=== PATIENT | male | born 1990 | race Caucasian/White ===

== ENCOUNTER 2019-01-23 10:25 | Inpatient (IN) | payer OTHER ==
[~2019-01-23] VITALS: Ht 182.9 cm; Wt 66.2 kg
[2019-01-23 10:41] VITALS: BP 100/61
[2019-01-23 10:59] LABS: URINE BILIRUBIN NEGATIVE (Negative); URINE BLOOD TRACE (Negative); URINE CLARITY CLEAR; URINE COLOR YELLOW; URINE GLUCOSE-RANDOM* NEGATIVE (Negative); URINE KETONES NEGATIVE (Negative); URINE LEUKOCYTES-REFLEX TRACE (Negative); URINE NITRITE-REFLEX NEGATIVE (Negative); URINE PROTEIN (DIPSTICK) NEGATIVE (Negative)
[2019-01-23 11:19] LABS: SSA (PROTEIN CONFIRMATORY) NEGATIVE (Negative)
[2019-01-23 11:43] LABS: ABSOLUTE NEUTROPHILS 7.2 thou/uL (1.4-8.2); BASOPHILS 0.4 % (0.0-2.0); EOSINOPHILS 6.7 % (0.0-3.0); HEMATOCRIT 44.7 % (42.0-52.0); HEMOGLOBIN 14.9 gm/dL (14.0-18.0); LYMPHOCYTES 17.9 % (24.0-44.0); MCHC 33.4 g/dL (28.0-37.0); MCV 89.7 fL (80.0-100.0); MONOCYTES 5.1 % (1.0-8.0); PLATELET COUNT 274 thou/uL (150-400); POLYS 69.9 % (36.0-66.0); RBC 4.98 mil/uL (4.50-6.00); RDW 12.8 % (10.5-14.5); WBC 10.3 thou/uL (4.0-11.0)
[2019-01-23 11:54] LABS: CALCIUM 10.1 mg/dL (8.5-10.1); POTASSIUM 4.2 mmol/L (3.5-5.1)
[2019-01-23 12:00] LABS: ALBUMIN 3.7 g/dL (3.4-5.0); TOTAL BILIRUBIN 0.8 mg/dL (<0.1-1.0); TOTAL PROTEIN 8.4 g/dL (6.4-8.2)
--- NOTE | 2019-01-23 15:10 | NUR ---
Pt brought up to room 433 by Emerg. dept charge nurse, Pt is awake and alert. Reporting pain right upper and lower abdominal quadrants. Pt has saline lock left AC. Pt is [place] speaking and is currently using language interpretation feature on his cell phone to facilitate communication. Pt also talking with his sister on his cell phone. See admission history and assessment.
[2019-01-23 17:27] VITALS: BP 150/76
--- NOTE | 2019-01-23 19:30 | NUR ---
Pt was medicated with Fentanyl IV for adominal pain (see emar) and received relief. Spoke with Dr Crook and received orders for a consent form for surgery tomorrow. Attempt made to use ob/gyn services provided by [facility] but unsuccessful in utilizing the service due to connection/phone issues. Continued to utilize pt's cell phone for language translation. Report given to oncoming RN.
[2019-01-24] VITALS (8 sets, daily range): BP systolic 110–131; BP diastolic 63–86
--- NOTE | 2019-01-24 03:16 | NUR ---
Assumed pt care at 1900. Pt is A/OX4,maltese primary language but using google morenita to translate without problems. C/o pain to RLQ,medicated with Fentanyl with relief reported.Up ad gissel. Pt has been NPO for possible appendectomy today. rounded on pt at .Encouraged to call for help as needed. Call light placed within reach.
--- NOTE | 2019-01-24 09:01 | NUR ---
RD consult received for pt with 8 lb unintentional wt loss from usual. Admitted with acute appendicitis and npo for surgical intervention today. Has had abdominal pain past week. Presents well nourished. Follow for timely ability to advance diet after surgery, otherwise low nutrition risk
--- NOTE | 2019-01-24 15:34 | NUR ---
PT ADMITTED RELATED TO APPY. CM REVIEWED CHART AND SPOKE WITH CARE TEAM. CM MET WITH PT AT BEDSIDE THIS DAY. HE IS ALERT AND ORIENTED BUT ONLY CHINESE SPEAKING. PT USED A TRASLATOR SERVICE ON HIS CELL PHONE. HE INDICATED THAT HE LIVES IN A HOUSE WITH IS AUNT AND DTR. PT INDICATED HE IS UNINSURED. PT INDICATED HE PLANS TO RETURN HOME ONCE MEDICALLY STABLE. CM TO FOLLOW INDICATED WITH DC PLANNING.
--- NOTE | 2019-01-24 16:48 | NUR ---
FAXED FACE SHEET TO [employer] TO HELP WITH MEDICAID APPLICATION RECEIVED CONFIRMATION.
--- NOTE | 2019-01-24 19:40 | NUR ---
ASSUMED CARE OF PATIENT AT 0715, PATIENT ALERT AND ORIENTED X 4. UP AD BRYAN IN ROOM TO BATHROOM. PATIENT C/O PAIN WITH ABDOMEN AREA DUE TO APPENDICITIS. DR FRENCH HERE THIS AM, NEW ORDERS RECEIVED FOR DILAUDID IV FOR PAIN. PATIENT RECEIVED DILAUDID IV AND FENTANYL IV ALTERNATING, PATIENT C/O HEADACHE RECEIVED TYLENOL 650MG PO X 1 PRIOR TO SURGERY. PATIENT HAS LEFT AV IV IN PLACE WITH NS AT 125CC/HR, RECEIVED FLAGYL IVPB X 1 THIS SHIFT. PATIENT LEFT FLOOR FOR SURGERY AT 1510. REPORT GIVEN TO SEAN/RN.
[2019-01-25 03:50] VITALS: BP 114/72
--- NOTE | 2019-01-25 05:27 | NUR ---
Assumed pt care at 1900 upon return from surgery. Pt in severe pain then medicated with Dilaudid with relief reported. Has 3 lap sites on abd intact with dermabond,ROSI drain on RUQ draining saunguineous noted. C/o nausea medicated with relief noted. Offered clear liquids only wanted popsicles and no further nausea. Had a low grade temp medicated with Tylenol twice with relief noted. Up and voiding without problems. Appreciative of cares. Encouraged to call as needed and doing so. Will continue to monitor pt.
[2019-01-25 08:06] VITALS: BP 118/63
[2019-01-25 09:02] LABS: HEMOGLOBIN 13.5 gm/dL (14.0-18.0); MCHC 33.8 g/dL (28.0-37.0); MCV 88.8 fL (80.0-100.0); RBC 4.5 mil/uL (4.50-6.00); RDW 12.7 % (10.5-14.5); WBC 9.2 thou/uL (4.0-11.0)
[2019-01-25 09:10] LABS: CALCIUM 9.3 mg/dL (8.5-10.1); CREATININE 0.9 mg/dL (0.7-1.3)
[2019-01-25 09:14] LABS: ALBUMIN 3.1 g/dL (3.4-5.0); PHOSPHORUS 3.5 mg/dL (2.5-4.9)
--- NOTE | 2019-01-25 16:39 | NUR ---
CARE TEAM INDICATED THAT PT IS STILL HAVING INCREASED PAIN AND THEY ARE WORKING ON ADVANCING DIET. ON CONTROLLED AND DIET TOLERATED IT IS ANTICPATED THAT PT WILL DC HOME WITH NO NEEDS. CM TO FOLLOW SHOULD ANY DC NEEDS ARISE.
[2019-01-25 17:47] VITALS: BP 122/75
[2019-01-25 19:04] VITALS: BP 119/66
--- NOTE | 2019-01-25 19:43 | NUR ---
ASSUMED CARE OF PATIENT AT 0715, PATIENT ALERT AND ORIENTED X 4. PATIENT IS TAMAZIGHT SPEAKING ONLY, TRANSLATION USED TO COMMUNICATE. THIS RN INSTRUCTED PATIENT TO CALL FOR ASSISTANCE, FALL PRECATIONS IN PLACE. PATIENT HAS LEFT AC IV WITH NS AT 125CC/HR, PATIENT RECEIVED FLAGYL IVPB X 1 THIS SHIFT. PATIENT HAS URINATED W/O DIFFICULTY, NO BM, BUT ACTIVE BS. DR FRENCH HERE TODAY TO SEE THE PATIENT NEW PAIN MED IV ORDERED/TORADOL IV GIVEN X 1, BUT PATIENT C/O ITCHING AFTER MED GIVEN. THIS RN NOTIFIED DR FRENCH, ORDER RECEIVED FOR BENADRYL 50MG PO EVERY 6HRS/PRN, AND HE DOESNT THINK TORADOL CAUSED THE ITCHING, BUT OK TO DISCONTINUE. PATIENT HAS BEEN GIVEN OXYCODONE X 1, FENTANYL, AND DILAUDID FOR PAIN THIS SHIFT, ALSO THE TORADOL IV. PATIENT ON CLEAR LIQUID DIET, TOLERATING W/D DIFFICULTY, NO NAUSEA REPORTED. ROSI DRAIN EMPTIED 15CC. WILL CONTINUE TO MONITOR.
[2019-01-25 19:56] VITALS: BP 123/78
[2019-01-26 04:07] VITALS: BP 133/84
--- NOTE | 2019-01-26 04:25 | NUR ---
Assumed pt care at 1900. A/OX4,up with SBA to bathroom d/t pain meds. C/o severe pain especially with movement,discussed with patient the importance of taking PO pain meds consecutively with Fentanyl for better pain relief and pt agreeable to. Encouraged to eat items on the clear diet list;had jello and popsicles with no nausea reported. IVF infusing via LAC without problems. Medicated for pain with partial relief reported,having a low grade temp Tylenol given as needed. Will continue to monitor pt.
[2019-01-26 07:00] VITALS: BP 122/80
--- NOTE | 2019-01-26 13:26 | NUR ---
CARE TEAM INDICATED THAT PT HAD RUPTURED APPY AND THAT THEY ANTIPATE THAT PT'S STAY WILL BE SOMEWHAT PROLONGED.
[2019-01-26 15:40] VITALS: BP 128/83
--- NOTE | 2019-01-26 16:47 | NUR ---
PT ASSESSED AT START OF SHIFT. PT C/O A LOT OF ABD PAIN WHICH IS RELIEVED SOME W/ IV PAIN MEDS. BOWEL SOUNDS VERY HYPOACTIVE. NO FLATUS PASSED. BELCHING SOME AND NAUSEATED TWICE W/ ZOFRAN GIVEN. PT AMBULATED THE HALLS THIS AM W/ NURSE. MOVES SLOWLY W/ AND VERY PAINFUL WHEN CHANGING POSITIONS. DR. FRENCH IN THIS AM TO SEE PT. NOAH ORDERED AND DR. ACOSTA TO RECIEVE RESULTS AT THIS TIME.
[2019-01-26 19:35] VITALS: BP 139/84
--- NOTE | 2019-01-27 00:45 | NUR ---
ASSESSMENT COMPLETED. PT HAS BEEN HAVING HICCUPS HENCE ALOT OF PAIN AND DISTRESS. NG TUBE TO RIGHT NARE FOR DECOMPRESSION. PT GETTING IV PAIN MEDS WITH FAIR RELIEF. WITH INTERMITTENT NAUSEA.TOLERATING SIPS OF WATER.WILL CONTINUE WITH POC.
[2019-01-27 05:05] VITALS: BP 102/64
[2019-01-27 05:25] VITALS: BP 149/94
[2019-01-27 07:10] VITALS: BP 131/75
[2019-01-27 08:37] LABS: HEMATOCRIT 43.5 % (42.0-52.0); HEMOGLOBIN 14.3 gm/dL (14.0-18.0); MCH 29.7 pg (26.0-34.0); MCHC 32.8 g/dL (28.0-37.0); MCV 90.5 fL (80.0-100.0); RBC 4.81 mil/uL (4.50-6.00); RDW 13.2 % (10.5-14.5); WBC 10.3 thou/uL (4.0-11.0)
[2019-01-27 08:49] LABS: ALBUMIN 2.7 g/dL (3.4-5.0); CREATININE 0.9 mg/dL (0.7-1.3); PHOSPHORUS 3.7 mg/dL (2.5-4.9); POTASSIUM 3.8 mmol/L (3.5-5.1)
--- NOTE | 2019-01-27 11:07 | PATH ---
[facility] [place] [address] PATHOLOGY RPT PROCEDURE Name: PHIL MCKEON Room #: 433-I ADM IN M.R.#: [id number] Admission: 01/23/19 Date of : 89 Discharge: Report #: [id number] Path Case #: [id number] LCA Accession Number: [id number] . 01 Material submitted: . appendix - APPENDIX . 01 Clinical history: . Acute appendicitis . 02 Diagnosis: Appendix, appendectomy: - Marked acute appendicitis along with marked acute serositis. . (IUV:mml; 01/26/2019) [facility] 01/26/2019 1636 Local . 02 Electronically signed: . Elenita Quarles MD, Pathologist NPI- [id number] . 01 Gross description: . The specimen is received in formalin, labeled "Phil Mckeon, appendix" and consists of a markedly disrupted appendix measuring approximately 7.3 cm in length and up to 1.0 cm in diameter with mesoappendix measuring 1.3 thick. The identifiable serosa is cota-brown and hemorrhagic with fibrous exudate. The margin is closed with a line of heidi and inked black. Sectioning reveals a pink-cota hemorrhagic lumen with adjacent mesoappendix hemorrhage. Business Liaison Officer sections are submitted in A1-A3. (SDY; 01/25/2019) SYU/SYU 01/25/2019 [facility] Local . 02 Pathologist provided ICD-10: K35.80 . 02 CPT . 725466 Specimen Comment: A courtesy copy of this report has been sent to [phone] Specimen Comment: Report sent to Performed at: [address] [id number] MD Jl Pavon MD Phone: [phone] Performed at: [address] [id number] [address] [address] PATHOLOGY RPT PROCEDURE Name: PHIL MCKEON Room #: 433-I ADM IN .R.#: [id number] Admission: 01/23/19 Date of : 89 Discharge: Report #: [id number] Path Case #: [id number] MD Elenita Quarles MD Phone: [phone]
--- NOTE | 2019-01-27 14:43 | NUR ---
IT IS ANTICIPATED THAT PT WILL BE HERE OVER THE WEEKEND HE IS PROGRESSING SLOWLEY. CM TO FOLLOW SHOULD ANY DC NEEDS ARISE.
--- NOTE | 2019-01-27 15:48 | NUR ---
Assumed care of pt at 0700. Pt c/o abd pain. Prn pain med administered. Pt c/o hickups. J.P. drain output from [id number] 800mL. Provider aware. Abd CT scan ordered. IVF infusing. Call light within reach. Will continue to monitor.
[2019-01-27 20:00] VITALS: BP 129/81
[2019-01-28 03:25] VITALS: BP 122/74
[2019-01-28 05:25] LABS: ALBUMIN 2.2 g/dL (3.4-5.0); CALCIUM 8.5 mg/dL (8.5-10.1); CREATININE 0.7 mg/dL (0.7-1.3); PHOSPHORUS 3.4 mg/dL (2.5-4.9)
[2019-01-28 05:27] LABS: POTASSIUM 3.7 mmol/L (3.5-5.1)
--- NOTE | 2019-01-28 08:01 | NUR ---
PATIENT ALERT AND ORIENTED X4. C/O PAIN MED, MED GIVEN X2. PATIENT SPEAKS LITTLE SAMI BUT HAS A CODING MANAGER ON HIS PHONE THAT TAKES WHAT OU SAY AND TRANSLATES FOR HIM. SLEPT OFF AND ON DURING NIGHT. ROSI DRAIN THAT HAS SERIUS FLUIDS.
[2019-01-28 08:29] VITALS: BP 115/69
[2019-01-28 09:47] LABS: HEMATOCRIT 36.8 % (42.0-52.0); MCH 30.1 pg (26.0-34.0); MCHC 33.4 g/dL (28.0-37.0); MCV 90.2 fL (80.0-100.0); RBC 4.08 mil/uL (4.50-6.00); WBC 8.6 thou/uL (4.0-11.0)
[2019-01-28 09:53] LABS: HEMOGLOBIN 12.3 gm/dL (14.0-18.0)
--- NOTE | 2019-01-28 17:13 | NUR ---
Assumed care at 0700. Pt is AOx4, speaks namibian only. Pt had BM and diet was advanced to clear liquid. Pt has hiccups on and off throughout the shift. Pt remains compliant with scheduled meds. No pain at this time. Pt was up in [place] walking with nurse. Call light in reach and pt will use appropriately. Will continue to monitor.
[2019-01-28 17:15] VITALS: BP 124/62
[2019-01-28 20:00] VITALS: BP 111/74
--- NOTE | 2019-01-28 23:23 | NUR ---
ASSESSMENT COMPLETED. PT APPEARS AND STATES FEELING BETTER. REPORTS THREE BMS SO FAR. REQUESTED FOR REGLAN. PT STARTED HAVING HICCUPS RIGHT ABOUT WHEN THE PRN DOSE OF THORAZINE WAS DUE-ONCE GIVEN, PT IS FALLEN ASLEEP HENCE APPEARS TO BE IN NO DISTRESS. VSS.HE DENIES PAIN. ROSI DRAIN TO RLQ WITH MODERATE AMTS OF SEROUS DRAINAGE. HE REMAINS UP AD BRYAN. HE DID NOT WANT TO WALK TONIGHT/ YET DUE TO THE HICCUPS. WILL CONTINUE WITH POC TILL EOS.
[2019-01-29 07:20] VITALS: BP 113/61
--- NOTE | 2019-01-29 07:36 | NUR ---
PT RESTING IN BED NO PAIN NO HICCUPS WILL CALL TO GET MED FOR HICCUPS CHANDED FROM SCEDULED TO PRN PATIENT REQUEST. DIET CHANGED TO FULL LIQUIDS.
--- NOTE | 2019-01-29 10:33 | NUR ---
ORDER IN COMPUTER FOR STAPLE REMOVAL ( NO ANDRES) PT HAS HAS 3 DURVT FUNG SITES .
[2019-01-29 16:08] VITALS: BP 115/73
--- NOTE | 2019-01-29 16:38 | NUR ---
Resumed care at 0700. PT was sitting upright in bed. PT denies any pain or nausea. PT refused thorazine twice when offered by nurse. Surgical sites are pink, edges are well approximated, dermabond noted, no redness or edema noted. ROSI drain is intact with serous drainage. PT's diet was advanced to full liquids and then regular after PT tolerated breakfast and lunch well. PT is currently sitting up in bed, call light is within reach, and nurse will continue to monitor.
--- NOTE | 2019-01-29 18:10 | NUR ---
DR SANTACRUZ HERE NEW ORDERS DC ROSI DRAIN CHANGE DIET TO REGULAR. AND DC FLUIDS PT TO GO HOME TOMMORROW.
--- NOTE | 2019-01-29 18:37 | NUR ---
Dr. Crook ordered nurse to d/c love drain and IVF. Nurse at bedside with Isela SHIPLEY. PT was disconnected from IV fluids and peripheral IV was saline locked. Isela SHIPLEY removed sutures and then LOVE drain at bedside. Nurse covered site with 4x4 gauze and tape. PT tolerated procedure well. PT is currently sitting up in bed. No complaints of pain. Call light is within reach. Will continue to monitor.
[2019-01-29 19:32] VITALS: BP 123/80
--- NOTE | 2019-01-30 02:39 | NUR ---
PATIENT ASSESSED AND IS ALERT X 4. SKIN WARM AND DRY. RESP EVEN AND UNLABORED. TAKING DIET WELL. ROSI DRAIN REMOVED AREA LOOKS GOOD. UP AD BRYAN IN ROOM AND REFUSED TO WALK IN HALLWAY ASKED 3 TIMES. 3 SITES HAVE DURABOND ON THEM NO REDDNESS NOTED. IV SITE HEALTHY. USES THE PHONE FOR TRANSLATING. TAKING REGULAR DIET WELL. DENIES ANY PAIN OR SOA. ON ROOM AIR. NO SKIN ISSUES. LUNGS CLEAR . ABDOMEN SOFT. CONT PLAN OF CARE.
[2019-01-30 03:32] VITALS: BP 119/70
[2019-01-30 08:09] VITALS: BP 124/62
[2019-01-30 09:27] LABS: HEMATOCRIT 40.4 % (42.0-52.0); HEMOGLOBIN 13.3 gm/dL (14.0-18.0); MCH 29.6 pg (26.0-34.0); MCHC 32.9 g/dL (28.0-37.0); MCV 89.9 fL (80.0-100.0); RBC 4.49 mil/uL (4.50-6.00)
[2019-01-30] MEDS ORDERED: OXYCODONE HCL10 MG PO (09:46)
[2019-01-30] MEDS ORDERED: COLACE 100 MG100 MG PO (09:46)
[2019-01-30] MEDS ORDERED: CEFDINIR300 MG PO (09:46)
[2019-01-30] MEDS ORDERED: ACETAMINOPHEN325 M1 PO (09:46)
[2019-01-30] MEDS ORDERED: IBUPROFEN 200200 M1 PO (09:46)
[2019-01-30] MEDS ORDERED: METRONIDAZOLE500 M4 PO (09:46)
[2019-01-30] MEDS ORDERED: MIRALAX17 GM PO (09:46)
[2019-01-30 09:51] LABS: ALBUMIN 2.8 g/dL (3.4-5.0); CREATININE 0.8 mg/dL (0.7-1.3); PHOSPHORUS 3.9 mg/dL (2.5-4.9); POTASSIUM 3.2 mmol/L (3.5-5.1)
[2019-01-30 10:17] VITALS: BP 124/62
[2019-01-30 11:25] VITALS: BP 124/62
[2019-01-30 13:00] VITALS: BP 124/62
--- NOTE | 2019-01-30 13:02 | NUR ---
DISCHARGE PAPERS GONE OVER WITH PATIENT SIGNED AND COPY IN CHART. IV ACSESS DCD AND RX'S GIVEN TO PATIENT. ALL BELONGINGS PACKED AND SENT WITH PATIENT. PT W/O PAIN OR RESP DISTRESS AT DISCHARGE.
== END 2019-01-30 13:04 | disposition home or self-care (01) | DRG 340 ==
LOC: ER 10:25 → EROBS 14:10 → 4S 14:10 → ENTRNSPT 01-30 12:46 → EDTRNSPTSTS 01-30 12:54 → 4S 01-30 13:04
PROVIDERS: Emergency Medicine; Surgery; ADMIT Surgery
PROC: 0DTJ4ZZ Resection of Appendix, Percutaneous Endoscopic Approach (ICD-10-PCS; principal; 2019-01-24)
DX: K35.33 Acute appendicitis with perforation, localized peritonitis, and gangrene, with abscess (principal); Z28.21 Immunization not carried out because of patient refusal
CPT/HCPCS: 10195; 50010; 50101; 50249; 50411; 50555; 50558; 50739; 50740; 50819; 51489; 52265; 52266; 53307; 53310; 53312; 54022; 54118; 56462; 56525; 56526; 62110; 62900; 70005